=== PATIENT | male | born 1960 | race Caucasian/White ===

== ENCOUNTER → 2023-06-11 02:09 | Outpatient (CLI) | payer OTHER, SELFPAY ==
--- NOTE | 2023-06-11 | DI.RAD_ITS ---
Exam(s) RF MODIFIED SPEECH BA SWALLOW TECHNIQUE: Modified barium swallow was performed in conjunction with speech pathology. CONTRAST MATERIAL: Multiple consistencies of oral barium contrast were administered. COMPARISON: No exams were available for comparison FINDINGS: Note that this is not a dedicated esophagram, distal esophagus not evaluated. There was laryngeal penetration with multiple consistencies. Mild vallecular residue. No cuong aspi ration.. Speech pathology report to follow. Fluoroscopy time 71 seconds IMPRESSION: Laryngeal penetration. Mild vallecular residue.. RADIATION DOSE DELIVERED: martín Walker=8.96 mGy
[2023-06-11] MEDS: Barium Sulfate Oral Paste 40% W/V 230 ML TUBE PO (14:45)
[2023-06-11] MEDS: Barium Sulfate 81% w/w for Oral Suspension 148 GM BTL PO (14:47)
[2023-06-11] MEDS: Barium Sulfate 40% W/V 1500 CPS 250 ML BTL PO (14:48)
[2023-06-11] MEDS: Barium Sulfate 40% W/V 240 ML BTL PO (14:49)
[2023-06-11] MEDS: Barium Sulfate 700 MG TAB PO (14:51)
--- NOTE | 2023-06-11 15:04 | ST.MBS ---
Date of Service Date of service: 06/11/23 Time of Service: 14:30 Modified Barium Swallow Study Findings: Video fluoroscopic Swallowing Evaluation (VFSE) / Modified Barium Swallow Study (MBSS) Speech Language Pathology Report Patient referred for VFSE/MBSS from Dr. Karine Snyder. Reason: Has difficulty swallowing at times, feels like his throat locks up especially if he is drinking water too fast. Also occurs when eating happens almost daily no coughing, watery eyes or sneezing. Diagnosis: R13.12 Oral-pharyngeal dysphagia - Mild HPI & Patient report of function: Patient is a 62 y/o year old M with hx of progressive essential tremor since early adulthood diagnosed by [facility] movement [facility]. Patient reports globus sensation, heartburn, regurgitation. He reports symptoms of throat tightness, locking up difficulty with drinking water too fast. PMHx: TOBACCO USE DISORDER ?quit 2008? ELEVATED PROSTATE SPECIFIC ANTIGEN [PSA] Alcohol intake above recommended sensible limits Anxiety Basal cell carcinoma of back ?recurrent basal cell-head and back? Closed fracture of metatarsal bone ?right foot-loose chip? Closed fracture of phalanx of finger ?right 5th finger? Depressive disorder Hyperlipidemia Elevated prostate specific antigen (PSA) Tobacco use disorder ?quit 2008? Intention tremor ?familial? Malignant melanoma of skin ?05/31 THREE ULCERATED SKIN LESIONS, TO BE TREATED @ [facility] BY DR. JAVIER; SMALL PIGMENTED NEVUS RIGHT ABD, TO BE OBSERVED FOR CHANGES.? IMPRESSIONS: Swallow safety is mildly impaired; swallow efficiency is largely normal. Mild chronic pharyngeal dysphagia characterized primarily by mildly reduced and delayed epiglottic inversion, flash laryngeal penetration during the swallow of thin and mildly thickened liquids without aspiration, and mildly reduced extent/duration of UES opening. Pharyngeal onset/initiation is not notably delayed. Anatomically he does not appear with any abnormality at the level of the cricopharyngeus muscle. Suspect he Patient appears to be at low risk for potential aspiration PNA and/or pulmonary compromise and low risk for malnutrition, low risk for dehydration. Diet modification is indicated; non-oral nutrition is indicated. Swallow prognosis is good given: Age, Severity, Time since onset, and pending patient/caregiver training in risk management as outlined, including use of trialed compensatory strategies. Patient appears to be a fair candidate for behavioral swallow rehabilitation to address reflux counseling and compensatory strategy training. Functional communication measures G8996 - CJ RECOMMENDATIONS: Diet Texture Recommendation:? IDDSI LEVEL SOLIDS 7-Regular Solids vs 6-Soft and Bite Size (as tolerated) LIQUIDS 0-Thin Liquids Please see further details at?[email or web address] MEDICATIONS Whole with 4-Puree or as tolerated Diet texture modification is per patient's preference; please adjust diet textures at patient's discretion & collaboration with care team. Do not alter medications (e.g., cut)? without advice from your MD or pharmacist. Risk Management Strategies:? Behavioral reflux precautions, including upright position during + 90 mins after meals. Small bites, approx [id number] Small sips, approx 10 mL Alternate solids/liquids as able Swallow Hard Control risk factors for aspiration pneumonia via (a) thorough oral hygiene & (b) maintaining physical mobility as tolerated PLAN: Therapy: Recommend subsequent outpatient session with [employer] to review results of today's exam and develop treatment plan as appropriate. Inspecting Machine Adjuster Goals: Patient will safely and comfortably tolerate least restrictive diet without s/sx Short Term Goals: Patient will verbalize/demonstrate understanding of risk management strategies including reflux counseling, aspiration precautions, and other behavioral changes Further goals to follow, if applicable, following further motivational interviewing pending patient goals of care. ----- OBJECTIVE Videofluoroscopic Swallow Evaluation (VFSE/MBSS) was conducted in the lateral projection by Speech-Language Pathologist, in collaboration with Radiologist, to evaluate oropharyngeal swallow function. Anatomic view under fluoroscopy: WFL except appearance of prominences along proximal posterior esophageal wall at level of C6-8, appears consistent with osteophytes. PO Barium Contrast Trials Oral barium water-soluble contrast was administered as follows: IDDSI Level 0 Varibar thin liquid (40% w/v) IDDSI Level 2 Varibar nectar thick/mildly thick liquid (40% w/v) IDDSI Level 4 Varibar pudding/pureed/extremely thick (40% w/v) IDDSI Level 7 Regular Solid: 1/2 nely cracker coated in 3 mL Varibar pudding 13 mm barium tablet taken with Thin Liquids (water). MBSImP Component Scores: COMPONENT Scale SCORE 1 Lip closure (0-4) 1 Resulted in interlabial escape, without progression to anterior lip 2 Hold Position (0-3) 0 Maintained a cohesive bolus between tongue to palatal seal 3 Bolus Preparation (0-4) 0 Resulted in timely and efficient chewing and mashing 4 Bolus Transport (0-4) 1 Demonstrated delayed initiation of tongue motion 5 Oral Residue (0-4) 1 Was a trace, lining oral structures 6 Swallow Initiation (0-4) 2 Occurred as bolus head at posterior laryngeal surface of epiglottis 7 Soft Palate Elevation (0-4) 0 Resulted in no bolus between soft palate and the pharyngeal wall 8 Laryngeal Elevation (0-3) 0 Demonstrated complete superior movement of thyroid cartilage with complete approximation of arytenoids to epiglottic petiole 9 Anterior Hyoid Motion (0-2) 0 Demonstrated complete anterior movement 10 Epiglottic Movement (0-2) 1 Resulted in partial inversion 11 Laryngeal Closure (0-2) 1 Was incomplete with narrow a column of air/contrast in laryngeal vestibule 12 Pharyngeal Stripping Wave (0-2) 1 Was present, but diminished 13 Pharyngeal Contraction (0-3) NA 14 PES Opening (0-3) 1 Demonstrated partial distension/partial duration, with partial obstruction of flow 15 Tongue Base Retraction (0-4) 2 Allowed a narrow column of contrast or air between the retracted tongue base and the posterior pharyngeal wall 16 Pharyngeal Residue (0-4) 2 Was a collection of residue within or on pharyngeal structures 17 Esophageal Clearance (0-4) NA Results: COMPONENT Scale SCORE 1 Oral Score (0-18) 3 2 Pharyngeal Score (0-29) 8 3 Esophageal Score (0-4) 0 Dysphagia Outcome and Severity Scale: COMPONENT Scale SCORE 1 LEVEL (1-7) 6 Full PO: Normal Diet - Within functional limits/modified independence Penetration-Aspiration Scale: COMPONENT Scale SCORE 1 Thin liquid (1-8) 2 Contrast entered the airway, remained above the vocal folds, and was ejected from the airway. 2 [place] thick (1-8) 2 Contrast entered the airway, remained above the vocal folds, and was ejected from the airway. 3 Honey thick (1-8) NA 4 Pudding thick (1-8) 1 Contrast did not enter the airway 5 Cookie (1-8) 1 Contrast did not enter the airway Trialled Compensatory Strategies & Outcome: Maneuvers Successful (+) Unsuccessful (-) Postures Successful (+) Unsuccessful (-) 3 second Preparatory Set? ? +/- Chin Tuck Posture? ? Cough? ? Posterior Head tilt? Reflexive? Cued? Throat Clear? ? Head Tilt to? Reflexive? Left? Cued? Right? ? Saliva swallow? ? + Head Turn/Rotate to? ? Supraglottic Swallow? Left? ? Super-supraglottic Swallow? Right? ? Bolus Modifications Successful (+) Unsuccessful (-) Delivery/Alternating Consistencies ? Follow with Liquid Wash + ? Follow with Solid Bolus? Delivery/Via Straw? ? Reduced Volume? ? + Reduced Rate of Intake? ? + Increased Viscosity? ? - Other:?? ? Thank you for allowing us to take part in this patient's care. Please feel free to contact the [facility] Speech Language Pathology Department with any questions/concerns. Coding CPT Codes MOTION FLUOROSCOPY/SWALLOW - [id number] ([id number])
== END ==
PROVIDERS: Visit Provider Nurse Practitioner Adult Health
DX: R13.13 Dysphagia, pharyngeal phase (principal)
CPT/HCPCS: 92611; 74221

== ENCOUNTER → 2023-08-27 01:36 | Outpatient (CLI) | payer OTHER, SELFPAY ==
--- NOTE | 2023-08-27 09:09 | DI.RAD_ITS ---
Exam(s) XR FOOT RT COMPLETE EXAM: XR FOOT RT COMPLETE CLINICAL HISTORY: NE AUTH# [id number] PAIN RT FOOT [id number]. TECHNIQUE: 2D digital imaging was performed. COMPARISON: No exams were available for comparison FINDINGS: 3 views No evidence of acute fracture or diastasis of the Lisfranc joint. There are advanced degenerative changes in the great toe metatarsophalangeal joint joint space narrow ing as well as prominent dorsal osteophyte off the great toe metatarsal head. Other articulations ap pear unremarkable. There are no erosions. No osseous lesions. No radiopaque foreign bodies. No ta rsal coalition. IMPRESSION: Advanced degenerative changes in the great toe metatarsophalangeal joint. No fractures evident. DATA REPOSITORY: RADIATION DOSE DELIVERED:
== END ==
PROVIDERS: Visit Provider Nurse Practitioner Adult Health
DX: M19.071 Primary osteoarthritis, right ankle and foot (principal)
CPT/HCPCS: 73630

== ENCOUNTER 2023-10-14 10:19 | Emergency (ER) | payer OTHER, SELFPAY ==
[2023-10-14 10:31] VITALS: BP 160/103; PULSE 97; RESP 16; TEMP 36.1; O2SAT 98
--- NOTE | 2023-10-14 11:02 | W.ED.GENAD ---
HPI General Date/Time Provider Initiated Documentation: 10/14/23 10:42. HPI Narrative: 63-year-old male smoker presents with atraumatic right foot discomfort over the last 4 days has noticed discoloration to the foot as well. Was worried that he might of injured himself while jump roping, has had a recent x-ray that was negative. Denies history of cardiovascular disease A-fib or thromboembolic disease in the past. Related Data Home Medications Medication Instructions Recorded Confirmed propranolol 60 mg capsule,24 60 mg PO BID #60 tab-caps 09/18/16 10/14/23 hr,extended release lisinopril 5 mg tablet 5 mg PO DAILY 10/14/23 10/14/23 methylphenidate HCl 20 mg tablet 20 mg PO DAILY 10/14/23 10/14/23 (Ritalin) Allergies Allergy/AdvReac Type Severity Reaction Status Date / Time No Known Allergies Allergy Unverified 10/14/23 10:29 General Stated Complaint: Orthopedic SAMAN: 4 Review of Systems Narrative: Review of Systems Constitutional: negative Eyes: negative ENT: negative Cardiovascular: negative Respiratory: negative Gastrointestinal: negative : negative Musculoskeletal: Painful foot Skin: negative Neurologic: negative Psych: negative Exam Narrative Exam Narrative: Physical Examination General: alert, awake, cooperative, resting comfortably, no acute distress HEENT: normocephalic, atraumatic; PERRL, EOM intact, conjunctiva normal; no nasal discharge; moist mucous membranes, oral and pharyngeal mucosa normal, tolerating secretions Neck: supple, trachea midline; full ROM Chest: normal to inspection Respiratory: normal respiratory effort, speaking in full sentences Skin: See extremity Neuro: AAOx3, normal speech, moving all extremities Extremities: Dorsum of right foot brian with decreased capillary refill, toes of right foot cyanotic, unable to palpate DP pulse, unable to palpate posterior tibialis pulse, foot is sensate, without deformity or signs of trauma, cool to the touch; flexion extension of toes intact flexion extension of ankle intact patient is ambulatory without assistance Psych: Appropriate mood and affect Course Vital Signs Vital signs: Vital Signs Temperature 36.1 C L 10/14/23 10:31 Pulse 97 H 10/14/23 10:31 Respiratory Rate 16 10/14/23 10:31 Blood Pressure 160/103 H 10/14/23 10:31 Pulse Oximetry 98 10/14/23 10:31 Temperature 36.1 C L 10/14/23 10:31 Temperature Source Temporal Artery Scan 10/14/23 10:31 Pulse 97 H 10/14/23 10:31 Respiratory Rate 16 10/14/23 10:31 Respiratory Effort Normal, Non-Labored 10/14/23 10:33 Blood Pressure 160/103 H 10/14/23 10:31 Blood Pressure Position Sitting 10/14/23 10:31 Pulse Oximetry 98 10/14/23 10:31 Oxygen Delivery Method Room Air 10/14/23 10:31 Oxygen Flow Rate 0 10/14/23 10:31 Pain Level 10 10/14/23 10:34 Medical Decision Making 63-year-old male presents with atraumatic painful right foot over the last 4 days, cool to the touch thomas in color with cyanosis to toes, unable to palpate DP pulse or tibialis posterior pulse, was able to find the tibialis posterior with Doppler was unable to find a DP pulse with Doppler; concern for arterial occlusion of the right lower extremity versus arterial dissection of the right lower extremity versus vasospasm lower suspicion for DVT fracture or dislocation cellulitis or other infectious process. Low suspicion for gout given no evidence of podagra or point tenderness or warmth to suggest inflammation. Will obtain stat CT angiogram right lower extremity to assess perfusion. Will likely initiate heparinization. Will obtain basic labs lactate coags. Will provide fluid and analgesia. Likely vascular consult pending imaging and lab results. 14: 28 CTA images showing bilateral arterial occlusions lower extremities interestingly left lower extremity occlusion seems to be worse than the right with no flow below the popliteal on the left however clinical examination shows a warm well-perfused sensate left lower extremity with DP and TP pulses; right lower extremity showing occlusion of right popliteal artery with reconstitution and then occlusion at the level of the right anterior tibial artery. Clinical examination of right lower extremity showing improvement of readiness, toes are no longer fully cyanotic, foot feels to be warming. Discussed case with vascular surgery at [facility] who agrees the patient should be transferred for vascular evaluation, however given limited bed capacity patient not excepted at [facility]. Have placed consultation with vascular surgery at [facility]. Will continue with heparin. Patient resting comfortably. 17: 08 call [facility] as well as patient is a , they are unsure of their available status given sentences. Was able to speak to [facility] vascular team Dr. Jones who has accepted patient for transfer, accepting ER physician Dr. Mcmahan. Patient hemodynamically stable, heparin drip running, amenable to transfer. Quality:SDOH Health Related Social Needs: No Data to Display PFSH All Active Problems (Updated 10/14/23 @ 17:09 by Laith Rod MD) Arterial occlusion, lower extremity (Acute) Social History Smoking/Tobacco Use Status: Current every day Tobacco Type: cigarettes Smoking risk assessment performed?: Yes Alcohol Intake: current Alcohol Intake frequency: holidays/special occasions only Drug use: Never Substance use type: does not use Housing: house Do you feel safe at home: Yes Do you feel safe in your relationship?: Yes Discharge Plan Disposition Patient Disposition: Transfer-Acute Inpatient Care Specific Acute Inpt Facility: [facility] Condition: Stable Discharge Details Chief Complaint: Orthopedic Clinical Impression: Arterial occlusion, lower extremity Primary Care Provider: Unknown,Unknown ED Provider: Laith Rod Home Meds and New Rx's Prescriptions: No Action propranolol 60 MG capsule,extended release 24 hr 60 mg PO BID Qty: 60 methylphenidate HCl [Ritalin] 20 mg tablet 20 mg PO DAILY lisinopril 5 mg tablet 5 mg PO DAILY
[2023-10-14 11:24] LABS: Lactate 1.1 mmol/L (0.6-1.4)
[2023-10-14 11:25] LABS: Abs Immature Grans 0.05 10^3/uL (0.0-0.06); Absolute Basophil Count 0.07 10^3/uL (0.0-0.2); Absolute Eosinophil Count 0.09 10^3/uL (0.0-0.7); Absolute Lymphocyte Count 2.87 10^3/uL (1.2-3.4); Absolute Monocyte Count 1.32 10^3/uL (0.1-0.8); Absolute Neutrophil Count 8.65 10^3/uL (1.2-6.7); Basophils % 0.5; Eosinophils % 0.7; HCT 52.4 % (40.0-50.0); Immature Grans % 0.4; MCH 31.8 pg (27.0-33.0); MCHC 34.4 % (32.0-36.0); MCV 93 fL (80-95); MPV 9.7 fL (8.0-11.0); Monocytes % 10.1; Neutrophils % 66.3; Platelet Count 311 10^3/uL (130-400); RBC 5.66 10^6/uL (4.36-5.78); RDW 13.2 % (11.8-14.1); RDW-SD 45.2 fL; WBC 13.05 10^3/uL (4.4-10.8)
[2023-10-14] MEDS: Normal Saline - Diluent 50 ML VIAL 100 ML IJ (11:33)
[2023-10-14] MEDS: Omnipaque 350 MG/ML 100 ML BTL 150 ML IJ (11:36)
[2023-10-14 11:38] LABS: INR 1.1 (0.9-1.1); PTT Activated 26.7 sec (23.6-32.8); Prothrombin Time 11.4 sec (9.1-11.1)
--- NOTE | 2023-10-14 11:40 | DI.CT_ITS ---
Exam(s) CT ABD AORTA CTA W RUNOFF EXAM: CT ABD AORTA CTA W RUNOFF CLINICAL HISTORY: cold painful right foot, decreased pulse. TECHNIQUE: Imaging Protocol: Axial CT angiography was performed with multi-slice acquisition and mu lti-planar and/or 3D reconstructions. CONTRAST MATERIAL: Intravenous: Omnipaque 350 Contrast volume:150 mL Oral: No COMPARISON: CT SINUS CT WITHOUT CONTRAST from 09/29/2009 FINDINGS: Vascular Structures: Abdomen and pelvis: Celiac [place]/SMA: No evidence of occlusion or significant stenosis. Mild atherosclerosis at the origi n of the SMA without significant stenosis. Renal Arteries: No evidence of occlusion or significant stenosis. Aorta: No aneurysm, occlusion or significant stenosis. No dissection. Atherosclerosis. Iliac Arteries: No evidence of occlusion or significant stenosis. Mild atherosclerosis. Lower extremities: Right: Common Femoral: No evidence of occlusion or significant stenosis. Femoral: No evidence of occlusion or significant stenosis. There is absence of flow in the distal fem oral artery and the popliteal artery. Deep Femoral Artery: No evidence of occlusion or significant stenosis. Popliteal: There is occlusion of the popliteal artery. Knee Trifurcation: There is reconstitution of the arteries distal to the right knee with visualizatio n of flow in the peroneal and posterior tibial arteries. Anterior Tibial: There is occlusion of the anterior tibial artery. Left: Common Femoral: No evidence of occlusion or significant stenosis. Femoral: No evidence of occlusion or significant stenosis. Deep femoral artery: No evidence of occlusion or significant stenosis. Popliteal: No evidence ofocclusion or significant stenosis. Atherosclerosis is present. Knee Trifurcation: There is absence of flow seen below the popliteal. There is no flow seen in the t rifurcation or the distal left lower extremity arteries. Soft Tissues: Lung bases: Clear. Liver: Normal density. There is a nonspecific hypodensity in the periphery of the right lobe of the l iver. It is too small for further characterization. Gallbladder and biliary tract: No radiodense calculus or dilation. Pancreas: Normal density, no abnormal calcifications or inflammatory process. Spleen: Normal. Kidneys: Normal size, contour and axis. No radiodense stones or obstructive uropathy. There is a simp le cysts seen in the left kidney. No follow-up is recommended. Adrenal glands: No masses seen. Bladder: Symmetric distention, no gross wall thickening. Bowel: There is diverticulosis of the colon without evidence of acute diverticulitis. There is a mod erate amount of stool in the colon. There is stool seen in the rectum which is mildly distended and may represent fecal impaction. There is no evidence of bowel obstruction or bowel wall thickening. The appendix is unremarkable. Peritoneal cavity: No ascites, collection or mesenteric inflammatory response. No free air. Bones: Within normal limits for the patient's age. Soft tissues: There is a small right and moderate-sized left fat containing inguinal hernia. There i s a small fat containing umbilical hernia. IMPRESSION: 1. Occlusion of the left trifurcation arteries. 2. Occlusion of the right popliteal artery with reconstitution distally of the right peroneal and pos terior tibialis artery. Occlusion of the right anterior tibial artery. 3. No acute abdominal or pelvic process. 4. Findings were discussed with Dr. Rod at 12:35 p.m. on 10/14/2023. RADIATION DOSE DELIVERED: 987.53mGy.cm Total DLP 987.53mGy.cm Total DLP DATA REPOSITORY: All CT scans at this facility are submitted to the National Radiology Data Registry (NRDR) Dose Index Registry (DIR) with the [employer] (ACR). RADIATION OPTIMIZATION: All CT scans at this facility use at least one of these dose optimization te chniques: automated exposure control; mA and/or kV adjustment per patient size (includes targeted exa ms where dose is matched to clinical indication); or iterative reconstruction.
[2023-10-14 11:50] LABS: ALT 30 U/L (16-63); AST 24 U/L (15-37); Albumin 3.6 g/dL (3.4-5.0); Alkaline Phosphatase 92 U/L (46-116); Anion Gap 9.2 mmol/L (3-11); BUN 12 mg/dL (7-18); Bilirubin, Total 0.5 mg/dL (0.2-1.0); CO2 28.8 mmol/L (21.0-32.0); CREATININE 0.9 mg/dL (0.70-1.30); Calcium 9.8 mg/dL (8.5-10.1); Chloride 98 mmol/L (98-107); Creatine Kinase 58 U/L (39-308); Estimated GFR 96.57 (mL/min/1.73m2); Glucose 105 mg/dL (74-106); Potassium 4.3 mmol/L (3.5-5.1); Sodium 136 mmol/L (136-145); Total Protein 8.2 g/dL (6.4-8.2)
--- NOTE | 2023-10-14 12:45 | RT.EKG_ITS ---
APPROVED REPORT Exam: Resting ECG Reason for Exam: x Patient Location: E HR:67 bpm ECG Measurements Heart Rate 67 AXIS SD 166 P 33 QRSd 77 QRS -21 QT 449 T 24 QTc 473 Conclusion Sinus rhythm...normal P axis, V-rate 60- 99 sinus rhythm, left axis, normal intervals, non ischemic
[2023-10-14] MEDS: Heparin in 0.45% NaCl 25,000 UNIT/250 ML BAG 16.75 UNIT IV (13:07)
[2023-10-14 18:26] VITALS: BP 178/92; PULSE 77; RESP 16; TEMP 36.5; O2SAT 98
--- NOTE | 2023-10-18 14:04 | NUR.NOTE ---
Accessed Pt chart to identify how the Pt was transferred.
== END 2023-10-14 18:37 | disposition short-term general hospital (02) ==
PROVIDERS: Emergency Provider Emergency Medicine
DX: M79.671 Pain in right foot (principal); I74.3 Embolism and thrombosis of arteries of the lower extremities; F17.210 Nicotine dependence, cigarettes, uncomplicated
CPT/HCPCS: 75635; 80053; 82550; 93005; 99285; 83605; 85025; 85610; 85730; 93010; 99284; J1644; J3490